=== PATIENT | male | born 1970 | race Caucasian/White ===

== ENCOUNTER 2021-02-17 15:54 | Emergency (ER) | payer OTHER ==
[2021-02-17 16:39] LABS: HEMOGLOBIN 17.2 gm/dl (14.0-17.5); RED BLOOD COUNT 5.59 M/UL (4.20-5.50); WHITE BLOOD COUNT 4.9 K/UL (4.5-11.0)
[2021-02-18] MEDS ORDERED: ASPIRIN CHEWABL81 MG PO (00:39)
== END 2021-02-18 05:00 | disposition home or self-care (01) ==
LOC: ER1 15:54
PROVIDERS: Family Medicine
DX: U07.1 COVID-19 (principal); N28.9 Disorder of kidney and ureter, unspecified; K92.1 Melena; E78.5 Hyperlipidemia, unspecified; E11.9 Type 2 diabetes mellitus without complications; I10 Essential (primary) hypertension; Z79.84 Long term (current) use of oral hypoglycemic drugs
CPT/HCPCS: 80053; 82272; 83605; 83690; 85025; 96374; 99285; C9113; Q9967; U0002